=== PATIENT | female | born 1955 | race Caucasian/White ===

== ENCOUNTER 2020-03-01 17:10 | Emergency (ER) | payer MEDICARE, OTHER, BC ==
--- NOTE | 2020-03-01 17:54 | CT ---
PROCEDURE INFORMATION: Exam: CT Head Without Contrast Exam date and time: 03/01/2020 5:36 PM Age: 64 years old Clinical indication: Other: Fall; Additional info: Fall, injury to right head face TECHNIQUE: Imaging protocol: Computed tomography of the head without contrast. Radiation optimization: All CT scans at this facility use at least one of these dose optimization techniques: automated exposure control; mA and/or kV adjustment per patient size (includes targeted exams where dose is matched to clinical indication); or iterative reconstruction. COMPARISON: No relevant prior studies available. FINDINGS: Brain: Normal. No hemorrhage. Unremarkable white matter. No mass effect. Cerebral ventricles: No ventriculomegaly. Bones/joints: Unremarkable. No acute fracture. Paranasal sinuses: Visualized sinuses are unremarkable. No fluid levels. Mastoid air cells: Visualized mastoid air cells are well aerated. Soft tissues: Unremarkable. IMPRESSION: No acute intracranial abnormality.
--- NOTE | 2020-03-01 18:01 | EDM.PDOC ---
"Scribed by Maira Warner 03/01/20 [id number] for Rehan Pruitt MD ED HPI GENERAL MEDICAL PROBLEM - General Chief Complaint: Head Injury Stated Complaint: HEAD INJURY Time Seen by Provider: 03/01/20 17:19 Source of Information: Reports: Patient, RN, RN Notes Reviewed History Limitations: Reports: No Limitations - History of Present Illness INITIAL COMMENTS - FREE TEXT/NARRATIVE: Patient presents to ED by POV stating she was trying separate a metal bunk bed when it sprung loose and struck her on the right side of the head and knocked her to the floor. She does not think she has loss of consciousness, but she was dazed and briefly nauseated. Denies any other injury. She does not take aspirin or blood thinners. Onset: Today Duration: Constant Location: Reports: Head Quality: Reports: Ache Severity: Moderate Improves with: Reports: None Worsens with: Reports: None Associated Symptoms: Reports: No Other Symptoms Right Face/Facial Pain Score (Numeric/FACES): 3 - Related Data Allergies Allergy/AdvReac Type Severity Reaction Status Date / Time Sulfa (Sulfonamide Allergy Other Verified 03/01/20 17:26 Antibiotics) Home Meds: Home Meds Cholecalciferol (Vitamin D3) [Vitamin D] 5,000 unit PO DAILY 03/01/20 [History] Metoprolol Tartrate [Lopressor] 50 mg PO DAILY 03/01/20 [History] Spironolactone [Aldactone] 12.5 mg PO DAILY 03/01/20 [History] ED ROS GENERAL - Review of Systems Review Of Systems: Comprehensive ROS is negative, except as noted in HPI. ED EXAM, HEAD INJURY - Physical Exam Exam: See Below Exam Limited By: No Limitations General Appearance: Alert, WD/WN, No Apparent Distress Neck: Normal Inspection Respiratory: No Respiratory Distress Cardiovascular: Normal Peripheral Pulses, Regular Rate, Rhythm Course - Vital Signs Last Recorded V/S: Last Vital Signs Temp 98.6 F 03/01/20 17:23 Pulse 73 03/01/20 17:23 Resp 18 03/01/20 17:23 BP 165/85 H 03/01/20 17:37 Pulse Ox 96 03/01/20 17:23 - Radiology Interpretation Free Text/Narrative:: [facility] Final Radiology Report Call: [phone] assistance Online chat: [email or web address] Name: IWONA FERNANDO Age: 64Years F Date: 03/01/2020 SSN: -- : 1955 Study: CT HEAD WO CONT Requesting Physician: REHAN PRUITT Images: [id number] Addl Studies: Provided Clinical History: fall, injury to right head face Contrast: Without Contrast Medium: Contrast Amount: Contrast Method: CONFIDENTIALITY STATEMENT This report is intended only for use by the referring physician, and only in accordance with law. If you received this in error, call [phone]. Page 1 of 1 PROCEDURE INFORMATION: Exam: CT Head Without Contrast Exam date and time: 03/01/2020 5:36 PM Age: 64 years old Clinical indication: Other: Fall; Additional info: Fall, injury to right head face TECHNIQUE: Imaging protocol: Computed tomography of the head without contrast. Radiation optimization: All CT scans at this facility use at least one of these dose optimization techniques: automated exposure control; mA and/or kV adjustment per patient size (includes targeted exams where dose is matched to clinical indication); or iterative reconstruction. COMPARISON: No relevant prior studies available. FINDINGS: Brain: Normal. No hemorrhage. Unremarkable white matter. No mass effect. Cerebral ventricles: No ventriculomegaly. Bones/joints: Unremarkable. No acute fracture. Paranasal sinuses: Visualized sinuses are unremarkable. No fluid levels. Mastoid air cells: Visualized mastoid air cells are well aerated. Soft tissues: Unremarkable. IMPRESSION: No acute intracranial abnormality. Thank you for allowing us to participate in the care of your patient. Dictated and Authenticated by: Bryan Culp MD 03/01/2020 5:54 PM Central Time ([place] & [place]) [facility] Final Radiology Report Call: [phone] assistance Online chat: [email or web address] Name: IWONA FERNANDO Age: 64Years F Date: 03/01/2020 SSN: -- : 1955 Study: CT MAX FACIAL SINUS WO CONT Requesting Physician: REHAN PRUITT Images: [id number] Addl Studies: Provided Clinical History: fall, injury to right head face Contrast: Without Contrast Medium: Contrast Amount: Contrast Method: Page 1 of 2 PROCEDURE INFORMATION: Exam: CT Maxillofacial Without Contrast Exam date and time: 03/01/2020 5:36 PM Age: 64 years old Clinical indication: Other: , Right sided pain; Additional info: Fall, injury to right head face TECHNIQUE: Imaging protocol: Computed tomography images of the face without contrast. Radiation optimization: All CT scans at this facility use at least one of these dose optimization techniques: automated exposure control; mA and/or kV adjustment per patient size (includes targeted exams where dose is matched to clinical indication); or iterative reconstruction. COMPARISON: No relevant prior studies available. FINDINGS: Orbital cavity: Orbits are normal. Globes are unremarkable. Bones/joints: No acute fracture. Paranasal sinuses: Normal. No air-fluid levels. Soft tissues: Unremarkable. IMPRESSION: 1. No acute findings. 2. No facial fracture. 3. No sinus air-fluid levels. 4. Orbits and contents are unremarkable. 5. No soft tissue foreign body. No significant facial hematoma or contusion evident. Thank you for allowing us to participate in the care of your patient. IWONA FERNANDO | Final Radiology Report CONFIDENTIALITY STATEMENT This report is intended only for use by the referring physician, and only in accordance with law. If you received this in error, call [phone]. Page 2 of 2 Dictated and Authenticated by: Bryan Culp MD 03/01/2020 6:00 PM Central Time ([place] & [place]) Departure - Departure Time of Disposition: 17:57 Disposition: Home, Self-Care 01 Condition: Good Clinical Impression: Concussion Qualifiers: Encounter type: initial encounter Loss of consciousness presence/duration: without LOC Qualified Code(s): S06.0X0A - Concussion without loss of consciousness, initial encounter Facial contusion Qualifiers: Encounter type: initial encounter Qualified Code(s): S00.83XA - Contusion of other part of head, initial encounter - Discharge Information *PRESCRIPTION DRUG MONITORING PROGRAM REVIEWED*: Not Applicable *COPY OF PRESCRIPTION DRUG MONITORING REPORT IN PATIENT JULIANN: Not Applicable Instructions: Concussion, Adult, [id number], Facial or Scalp Contusion, [id number] Forms: ED Department Discharge Additional Instructions: Rest, ice pack, and use Tylenol or Ibuprofen as needed for pain. Sepsis Event Note (ED) - Focused Exam Vital Signs: Vital Signs Temp Pulse Resp BP Pulse Ox 03/01/20 17:37 165/85 H 03/01/20 17:23 98.6 F 73 18 178/86 H 96 I have read and agree with the documentation that has been completed regarding this visit. By signing this record, I attest that the documentation was completed in my physical presence and is an accurate record of the encounter."
== END 2020-03-01 18:08 | disposition home or self-care (01) ==
LOC: DL.ED 17:10
DX: S06.0X0A Concussion without loss of consciousness, initial encounter (principal); S00.83XA Contusion of other part of head, initial encounter; Z88.2 Allergy status to sulfonamides; W22.8XXA Striking against or struck by other objects, initial encounter
CPT/HCPCS: 70450; 70486; 99283; 99284-25

== ENCOUNTER 2020-04-20 13:55 | Emergency (ER) | payer MEDICARE, BC, OTHER ==
[2020-04-20 15:07] LABS: CORONAVIRUS COVID-19 NAA NEGATIVE (NEGATIVE)
--- NOTE | 2020-04-20 16:45 | EDM.PDOC ---
ED HPI GENERAL MEDICAL PROBLEM - General Chief Complaint: Fever Stated Complaint: FEVER,BODY ACHES,COUGH Time Seen by Provider: 04/20/20 16:25 Source of Information: Reports: Patient History Limitations: Reports: No Limitations - History of Present Illness INITIAL COMMENTS - FREE TEXT/NARRATIVE: This 64 yo female patient reports to the ED with increased shortness of breath, a cough and a fever. The patient reports she has had her spleen removed causing increased concern due to the fever. The patient reports she has been taking Tylenol or ibuprofen for temporary fever relief. Duration: Day(s):, Constant, Getting Worse Location: Reports: Chest, Generalized Quality: Reports: Other Severity: Moderate Improves with: Reports: None Worsens with: Reports: None Associated Symptoms: Reports: Cough, Fever/Chills, Shortness of Breath, Other (decreased energy) Treatments ONLINE BANKING SPECIALIST: Reports: Acetaminophen, NSAIDS - Related Data Allergies Allergy/AdvReac Type Severity Reaction Status Date / Time Sulfa (Sulfonamide Allergy Other Verified 04/20/20 16:15 Antibiotics) Home Meds: Home Meds Cholecalciferol (Vitamin D3) [Vitamin D] 50,000 unit PO WEEKLY 03/01/20 [History] Metoprolol Tartrate [Lopressor] 50 mg PO DAILY 03/01/20 [History] Spironolactone [Aldactone] 12.5 mg PO DAILY 03/01/20 [History] Past Medical History Cardiovascular History: Reports: Hypertension Other Hematologic History: thrombocytopenia - Past Surgical History GI Surgical History: Reports: Other (See Below) Other GI Surgeries/Procedures: Splenectomy Oncologic Surgical History: Reports: Biopsy of Breast Social & Family History - Tobacco Use Tobacco Use Status *Q: Never Tobacco User Second Hand Smoke Exposure: No - Caffeine Use Caffeine Use: Reports: None - Recreational Drug Use Recreational Drug Use: No ED ROS GENERAL - Review of Systems Review Of Systems: Comprehensive ROS is negative, except as noted in HPI. ED EXAM, GENERAL - Physical Exam Exam: See Below Exam Limited By: No Limitations General Appearance: Alert, WD/WN, Moderate Distress Eye Exam: Bilateral Eye: EOMI, Normal Inspection, PERRL Ears: Normal External Exam, Normal Canal, Hearing Grossly Normal, Normal TMs Nose: Normal Inspection, Normal Mucosa, No Blood Throat/Mouth: Normal Inspection, Normal Lips, Normal Teeth, Normal Gums, Normal Oropharynx, Normal Voice, No Airway Compromise Head: Atraumatic, Normocephalic Neck: Normal Inspection, Supple, Non-Tender, Full Range of Motion Respiratory/Chest: No Respiratory Distress, No Accessory Muscle Use, Chest Non- Tender, Rhonchi (faint rhonchi lower lobes) Cardiovascular: Normal Peripheral Pulses, Regular Rate, Rhythm, No Edema, No Gallop, No JVD, No Murmur, No Rub GI/Abdominal: Normal Bowel Sounds, Soft, Non-Tender, No Organomegaly, No Distention, No Abnormal Bruit, No Mass (Female) Exam: Deferred Rectal (Female) Exam: Deferred Back Exam: Normal Inspection, Full Range of Motion, NT Extremities: Normal Inspection, Normal Range of Motion, Non-Tender, Normal Capillary Refill, No Pedal Edema Neurological: Alert, Oriented, CN II-XII Intact, Normal Cognition, Normal Gait, Normal Reflexes, No Motor/Sensory Deficits Psychiatric: Normal Affect, Normal Mood Skin Exam: Warm, Dry, Intact, Normal Color, No Rash Lymphatic: No Adenopathy Course - Vital Signs Last Recorded V/S: Last Vital Signs Temp 37.3 C 04/20/20 16:09 Pulse 70 04/20/20 16:09 Resp 18 04/20/20 16:09 BP 140/78 04/20/20 16:09 Pulse Ox 96 04/20/20 16:09 - Orders/Labs/Meds Orders: Active Orders 24 hr Category Date Time Status CULTURE BLOOD [BC] Stat Lab 04/20/20 16:34 Ordered CULTURE URINE [RM] Urgent Lab 04/20/20 16:35 Received UA W/MICROSCOPIC [URIN] Urgent Lab 04/20/20 16:35 Results Labs: Laboratory Tests 04/20/20 04/20/20 04/20/20 Range/Units 14:05 16:27 16:27 WBC 12.1 H (5.0-10.0) 10^3/uL RBC 4.38 (4.2-5.4) 10^6/uL Hgb 13.6 (12.0-16.0) g/dL Hct 39.6 (37.0-47.0) % MCV 90.4 (80-100) fL MCH 31.1 (27.0-34.0) pg MCHC 34.3 (33.0-35.0) g/dL Plt Count 91 L (150-450) 10^3/uL Neut % (Auto) 71.6 (42.2-75.2) % Lymph % (Auto) 21.2 (20.5-50.1) % [place] % (Auto) 6.7 (2-8) % Eos % (Auto) 0.1 L (1.0-3.0) % Baso % (Auto) 0.4 (0.0-1.0) % Sodium 129 L (136-145) mmol/L Potassium 3.7 (3.5-5.1) mmol/L Chloride 94 L (98-107) mmol/L Carbon Dioxide 22 (21-32) mmol/L Anion Gap 16.7 H (7-13) mEq/L BUN 16 (7-18) mg/dL Creatinine 0.95 (0.55-1.02) mg/dL Est Cr Clr Drug Dosing 55.27 mL/min Estimated GFR (MDRD) 59 BUN/Creatinine Ratio 16.8 (No establ ref range) Glucose 123 H (74-99) mg/dL Lactic Acid (0.4-2.0) mmol/L Calcium 8.9 (8.5-10.1) mg/dL Total Bilirubin 0.7 (0.2-1.0) mg/dL AST 19 (15-37) U/L ALT 31 (14-59) U/L Alkaline Phosphatase 72 (46-116) U/L Total Protein 8.8 H (6.4-8.2) g/dL Albumin 3.2 L (3.4-5.0) g/dL Globulin 5.6 Albumin/Globulin Ratio 0.57 Urine Color (YELLOW) Urine Appearance (CLEAR) Urine pH (5.0-9.0) Ur Specific [place] (1.005-1.030) Urine Protein (NEGATIVE) Urine Glucose (UA) (NEGATIVE) Urine Ketones (NEGATIVE) Urine Occult Blood (NEGATIVE) Urine Nitrite (NEGATIVE) Urine Bilirubin (NEGATIVE) Urine Urobilinogen (0.2-1.0) mg/dL Ur Leukocyte Esterase (NEGATIVE) Influenza Type A RNA Negative (NEGATIVE) Influenza Type B RNA Negative (NEGATIVE) SARS-CoV-2 RNA (ROBERTO) Negative (NEGATIVE) 04/20/20 04/20/20 Range/Units 16:27 16:35 WBC (5.0-10.0) 10^3/uL RBC (4.2-5.4) 10^6/uL Hgb (12.0-16.0) g/dL Hct (37.0-47.0) % MCV (80-100) fL MCH (27.0-34.0) pg MCHC (33.0-35.0) g/dL Plt Count (150-450) 10^3/uL Neut % (Auto) (42.2-75.2) % Lymph % (Auto) (20.5-50.1) % [place] % (Auto) (2-8) % Eos % (Auto) (1.0-3.0) % Baso % (Auto) (0.0-1.0) % Sodium (136-145) mmol/L Potassium (3.5-5.1) mmol/L Chloride (98-107) mmol/L Carbon Dioxide (21-32) mmol/L Anion Gap (7-13) mEq/L BUN (7-18) mg/dL Creatinine (0.55-1.02) mg/dL Est Cr Clr Drug Dosing mL/min Estimated GFR (MDRD) BUN/Creatinine Ratio (No establ ref range) Glucose (74-99) mg/dL Lactic Acid 0.8 (0.4-2.0) mmol/L Calcium (8.5-10.1) mg/dL Total Bilirubin (0.2-1.0) mg/dL AST (15-37) U/L ALT (14-59) U/L Alkaline Phosphatase (46-116) U/L Total Protein (6.4-8.2) g/dL Albumin (3.4-5.0) g/dL Globulin Albumin/Globulin Ratio Urine Color Yellow (YELLOW) Urine Appearance Clear (CLEAR) Urine pH 5.5 (5.0-9.0) Ur Specific [place] >= 1.030 (1.005-1.030) Urine Protein 30 H (NEGATIVE) Urine Glucose (UA) Negative (NEGATIVE) Urine Ketones Trace H (NEGATIVE) Urine Occult Blood Small H (NEGATIVE) Urine Nitrite Negative (NEGATIVE) Urine Bilirubin Negative (NEGATIVE) Urine Urobilinogen 0.2 (0.2-1.0) mg/dL Ur Leukocyte Esterase Small H (NEGATIVE) Influenza Type A RNA (NEGATIVE) Influenza Type B RNA (NEGATIVE) SARS-CoV-2 RNA (ROBERTO) (NEGATIVE) Meds: Medications Discontinued Medications Generic Name Dose Route Start Last Admin Trade Name Berenice PRN Reason Stop Dose Admin Ceftriaxone Sodium 1 gm 04/20/20 17:03 Rocephin IM 04/20/20 17:04 ONETIME ONE Lidocaine HCl 2.1 ml 04/20/20 17:09 Xylocaine-Mpf 1% INJECT 04/20/20 17:10 ONETIME ONE Departure - Departure Time of Disposition: 17:07 Disposition: Home, Self-Care 01 Condition: Fair Clinical Impression: Acute bronchitis Qualifiers: Bronchitis organism: unspecified organism Qualified Code(s): J20.9 - Acute bronchitis, unspecified - Discharge Information *PRESCRIPTION DRUG MONITORING PROGRAM REVIEWED*: Not Applicable *COPY OF PRESCRIPTION DRUG MONITORING REPORT IN PATIENT JULIANN: Not Applicable Instructions: Acute Bronchitis, Adult, [id number] Forms: ED Department Discharge Care Plan Goals: The patient was advised of the examination, lab and x-ray results during the visit. The patient was given an injection of Rocephin while in the ED. The patient was discharged with a script for Azithromycin (250 mg) #6 to take 2 by mouth on day 1 and 1 by mouth on days 2-5. If the patient has any additional symptoms or concerns, the patient should either return to the emergency department or visit her primary care facility. Sepsis Event Note (ED) - Evaluation Sepsis Screening Result: No Definite Risk - Focused Exam Vital Signs: Vital Signs Temp Pulse Resp BP Pulse Ox 04/20/20 16:09 37.3 C 70 18 140/78 96 - My Orders Last 24 Hours: My Active Orders 04/20/20 16:34 CULTURE BLOOD [BC] Stat 04/20/20 16:35 CULTURE URINE [RM] Urgent UA W/MICROSCOPIC [URIN] Urgent - Assessment/Plan Last 24 Hours: My Active Orders 04/20/20 16:34 CULTURE BLOOD [BC] Stat 04/20/20 16:35 CULTURE URINE [RM] Urgent UA W/MICROSCOPIC [URIN] Urgent
--- NOTE | 2020-04-20 16:54 | CR ---
PROCEDURE INFORMATION: Exam: XR Chest, 2 Views Exam date and time: 04/20/2020 4:38 PM Age: 64 years old Clinical indication: Cough and shortness of breath; Additional info: Cough with shortness of breath TECHNIQUE: Imaging protocol: XR of the chest Views: 2 views. Total images: 2 COMPARISON: No relevant prior studies available. FINDINGS: Lungs: Somewhat rounded opacity in the right suprahilar region. Pleural spaces: Unremarkable. No pleural effusion. No pneumothorax. Heart/Mediastinum: Unremarkable. No cardiomegaly. Bones/joints: Anterior thoracic spine spurs. Intraperitoneal space: Surgical clips in the left upper quadrant of the abdomen. IMPRESSION: Somewhat rounded right suprahilar opacity. Possibly atelectatic or infectious however a nodule not excluded. Suggest correlation with chest CT for further evaluation.
[2020-04-20 16:58] LABS: ANION GAP 16.7 mEq/L (7-13)
[2020-04-20] MEDS ORDERED: cefTRIAXone 1 GM Vial IM ONE (17:03)
[2020-04-20] MEDS ORDERED: Lidocaine 1% 30 ML SDV INJECT ONE (17:09)
== END 2020-04-20 17:25 | disposition home or self-care (01) ==
LOC: DL.ED 13:55
DX: J20.9 Acute bronchitis, unspecified (principal); I10 Essential (primary) hypertension; Z79.899 Other long term (current) drug therapy; Z20.822 Contact with and (suspected) exposure to COVID-19; Z88.2 Allergy status to sulfonamides
CPT/HCPCS: 0240U; 36415; 71046; 80053; 81001; 83605; 85025; 87040; 87086; 87088; 87186; 96372; 99283; 99285-25; J0696

== ENCOUNTER 2020-10-18 08:15 | Emergency (ER) | payer MEDICARE, BC, OTHER ==
[2020-10-18] MEDS ORDERED: Tetracaine HCl/PF 0.5% 4 ML Bottle EYERT ONE (08:35)
[2020-10-18] MEDS ORDERED: Fluorescein 1 MG Ophth Strip EYERT ONE (08:37)
[2020-10-18] MEDS ORDERED: Polymyxin B/Trimethoprim 10 ML Bottle ONE (08:59)
--- NOTE | 2020-10-18 09:13 | EDM.PDOC ---
ED HPI GENERAL MEDICAL PROBLEM - General Chief Complaint: Eye Problems Stated Complaint: [id number] RIGHT EYE PAINFUL RED FEELS SCRATCHY Time Seen by Provider: 10/18/20 08:26 Source of Information: Reports: Patient History Limitations: Reports: No Limitations - History of Present Illness INITIAL COMMENTS - FREE TEXT/NARRATIVE: This 65 yo female patient reports to the ED with right eye became very itchy this morning. The patient does not recall getting anything in her eye, but was cleaning at her daughter's house yesterday. Onset: Today Duration: Constant Location: Reports: Head (Right eye) Quality: Reports: Ache, Burning Severity: Moderate Improves with: Reports: None Worsens with: Reports: None Context: Reports: Other Associated Symptoms: Reports: No Other Symptoms Right Eye Pain Score (Numeric/FACES): 6 - Related Data Allergies Allergy/AdvReac Type Severity Reaction Status Date / Time Sulfa (Sulfonamide Allergy Other Verified 04/20/20 16:15 Antibiotics) Home Meds: Home Meds Cholecalciferol (Vitamin D3) [Vitamin D] 50,000 unit PO WEEKLY 03/01/20 [History] Metoprolol Tartrate [Lopressor] 50 mg PO DAILY 03/01/20 [History] hydroCHLOROthiazide [Hydrochlorothiazide] 12.5 mg PO ASDIRECTED 10/18/20 [History] Past Medical History Cardiovascular History: Reports: Hypertension Other Hematologic History: thrombocytopenia - Infectious Disease History Infectious Disease History: Reports: Human Papilloma Virus (HPV) - Past Surgical History GI Surgical History: Reports: Other (See Below) Other GI Surgeries/Procedures: Splenectomy Oncologic Surgical History: Reports: Biopsy of Breast Social & Family History - Tobacco Use Tobacco Use Status *Q: Never Tobacco User - Caffeine Use Caffeine Use: Reports: Coffee - Recreational Drug Use Recreational Drug Use: No ED ROS GENERAL - Review of Systems Review Of Systems: Comprehensive ROS is negative, except as noted in HPI. ED EXAM GENERAL W FULL EYE - Physical Exam Exam: See Below Exam Limited By: No Limitations General Appearance: Alert, WD/WN, No Apparent Distress Eye Exam: Right Eye: Conjunctival Injection, Corneal Abrasion, Bilateral Eye: EOMI Eyelids: Bilateral: Normal Appearance Conjunctiva & Sclera: Right: Conjunctival Edema, Injected Cornea Exam: Right: Corneal Abrasion (At the 5 o'clock position) Extraocular Movements: Bilateral: Intact Pupils: Normal Accommodation Pupillary Size: Bilateral: 4 mm Pupillary Reaction: Bilateral: Brisk Ears: Normal External Exam, Normal Canal, Hearing Grossly Normal, Normal TMs Nose: Normal Inspection, Normal Mucosa, No Blood Throat/Mouth: Normal Inspection, Normal Lips, Normal Teeth, Normal Gums, Normal Oropharynx, Normal Voice, No Airway Compromise Head: Atraumatic, Normocephalic Neck: Normal Inspection, Supple, Non-Tender, Full Range of Motion Respiratory/Chest: No Respiratory Distress, Lungs Clear, Normal Breath Sounds, No Accessory Muscle Use, Chest Non-Tender Cardiovascular: Normal Peripheral Pulses, Regular Rate, Rhythm, No Edema, No Gallop, No JVD, No Murmur, No Rub (Male) Exam: Deferred (Female) Exam: Deferred Rectal (Males) Exam: Deferred Rectal (Female) Exam: Deferred Back Exam: Normal Inspection, Full Range of Motion, NT Extremities: Normal Inspection, Normal Range of Motion, Non-Tender, Normal Capillary Refill, No Pedal Edema Neurological: Alert, Oriented, CN II-XII Intact, Normal Cognition, Normal Gait, Normal Reflexes, No Motor/Sensory Deficits Psychiatric: Normal Affect, Normal Mood Skin Exam: Warm, Dry, Intact, Normal Color, No Rash Lymphatic: No Adenopathy ED EYE w/ Add Procedure - Eye Procedure Alcaine Drops Administered: Yes Eye FB Removal: no Removal w/ Cotton Swab, no Removal w/ Needle, no Other Antibiotic Oinment/Drps Admin: Right Eye Progress: Corneal abrasion noted to right pupil at the 5 o'clock position Course - Vital Signs Last Recorded V/S: Last Vital Signs Temp 97.9 F 10/18/20 08:26 Pulse 69 10/18/20 08:26 Resp 14 10/18/20 08:26 BP 156/69 H 10/18/20 09:10 Pulse Ox 96 10/18/20 08:26 - Orders/Labs/Meds Meds: Medications Discontinued Medications Generic Name Dose Route Start Last Admin Trade Name Berenice PRN Reason Stop Dose Admin Fluorescein Sodium 1 mg 10/18/20 08:37 10/18/20 08:44 Fluorescein 1 Mg Ophth Strip EYERT 10/18/20 08:38 1 mg ONETIME ONE Administration Polymyxin/Trimethoprim Sulfate Confirm 10/18/20 08:59 10/18/20 09:05 Polymyxin B/Trimethoprim 10 Ml Bottle Administered 10/18/20 09:00 Not Given Dose 10 ml .ROUTE .STK-MED ONE Tetracaine HCl 1 ml 10/18/20 08:35 10/18/20 08:44 Tetracaine Hcl/Pf 0.5% 4 Ml Bottle EYERT 10/18/20 08:36 1 drop ASDIRECTED ONE Administration Departure - Departure Time of Disposition: 09:01 Disposition: Home, Self-Care 01 Condition: Fair Clinical Impression: Corneal abrasion Qualifiers: Encounter type: initial encounter Laterality: right Qualified Code(s): S05.01XA - Injury of conjunctiva and corneal abrasion without foreign body, right eye, initial encounter - Discharge Information *PRESCRIPTION DRUG MONITORING PROGRAM REVIEWED*: Not Applicable *COPY OF PRESCRIPTION DRUG MONITORING REPORT IN PATIENT JULIANN: Not Applicable Instructions: Corneal Abrasion, [id number] Forms: ED Department Discharge Care Plan Goals: The patient was advises of the examination results during the visit. The patient's eye was anesthetized during the visit. A corneal abrasion was identified during examination. The patient was discharged with Polytrim to place 1 drop in her right eye 4 times per day for 7 days. The patient was encouraged to avoid rubbing her eye. If the patient has any additional symptoms or concerns, the patient should either return to the emergency department, visit her eye doctor or return to the ED. Sepsis Event Note (ED) - Evaluation Sepsis Screening Result: No Definite Risk - Focused Exam Vital Signs: Vital Signs Temp Pulse Resp BP Pulse Ox 10/18/20 09:10 156/69 H 10/18/20 08:34 156/94 H 10/18/20 08:26 97.9 F 69 14 203/64 H 96
== END 2020-10-18 09:19 | disposition home or self-care (01) ==
LOC: DL.ED 08:15
DX: S05.01XA Injury of conjunctiva and corneal abrasion without foreign body, right eye, initial encounter (principal); I10 Essential (primary) hypertension; Z88.2 Allergy status to sulfonamides; Z79.899 Other long term (current) drug therapy; X58.XXXA Exposure to other specified factors, initial encounter
CPT/HCPCS: 99283; A9270

== ENCOUNTER 2020-11-28 09:00 | Emergency (ER) | payer BC, MEDICARE, OTHER | END 2020-11-28 10:30 | disposition home or self-care (01) | LOC: DL.ED 09:00 | DX: Z53.21 Procedure and treatment not carried out due to patient leaving prior to being seen by health care provider (principal) ==

== ENCOUNTER 2021-01-25 09:30 | Emergency (ER) | payer BC, MEDICARE, OTHER ==
--- NOTE | 2021-01-25 09:56 | EDM.PDOC ---
ED HPI GENERAL MEDICAL PROBLEM - General Chief Complaint: Abdominal Pain Stated Complaint: STOMACH ISSUES Time Seen by Provider: 01/25/21 09:54 Source of Information: Reports: Patient, RN, RN Notes Reviewed History Limitations: Reports: No Limitations - History of Present Illness INITIAL COMMENTS - FREE TEXT/NARRATIVE: Indigo is a 65 y/o female who presents to the ED via personal vehicle from the [facility] at the request of her PCP with complaints of RLQ pain, fever, and diarrhea. The patient reports her symptoms began two days ago and have progressively worsened in that time. Additionally, she notes shaking chills and nausea. Her TMax was last night at 100.4, which appropriately reduced with acetaminophen. She denies vision changes, dizziness, palpitations, vomiting, dysuria, hematuria, hematochezia, or melena. The patient denies tobacco, alcohol, or recreational drug use. The patient states she was diagnosed with a cryptosporidium infection approximately 15 months ago, which feels similar in symptoms. - Related Data Allergies Allergy/AdvReac Type Severity Reaction Status Date / Time Sulfa (Sulfonamide Allergy Other Verified 04/20/20 16:15 Antibiotics) Home Meds: Home Meds Cholecalciferol (Vitamin D3) [Vitamin D] 50,000 unit PO WEEKLY 03/01/20 [History] Metoprolol Tartrate [Lopressor] 50 mg PO DAILY 03/01/20 [History] hydroCHLOROthiazide [Hydrochlorothiazide] 12.5 mg PO ASDIRECTED 10/18/20 [History] Past Medical History Cardiovascular History: Reports: Hypertension Other Hematologic History: thrombocytopenia - Infectious Disease History Infectious Disease History: Reports: Human Papilloma Virus (HPV) - Past Surgical History GI Surgical History: Reports: Other (See Below) Other GI Surgeries/Procedures: Splenectomy Oncologic Surgical History: Reports: Biopsy of Breast Social & Family History - Caffeine Use Caffeine Use: Reports: Coffee ED ROS GENERAL - Review of Systems Review Of Systems: Comprehensive ROS is negative, except as noted in HPI. ED EXAM, RENAL/ - Physical Exam Exam: See Below Exam Limited By: No Limitations General Appearance: Alert, Mild Distress (RLQ pain). No: Active Emesis Eye Exam: Bilateral Eye: EOMI, Normal Inspection, PERRL (3mm) Ears: Normal External Exam, Hearing Grossly Normal Nose: Normal Inspection Throat/Mouth: Normal Inspection, Normal Oropharynx, Normal Voice, No Airway Compromise Head: Atraumatic Neck: Normal Inspection Respiratory/Chest: No Respiratory Distress, Lungs Clear, Normal Breath Sounds, No Accessory Muscle Use, Chest Non-Tender Cardiovascular: Normal Peripheral Pulses, Regular Rate, Rhythm, No Gallop, No Murmur, No Rub GI/Abdominal: No Distention, No Abnormal Bruit, No Mass, Pelvis Stable, Rebound (RLQ), Tender (RLQ and RUQ to palpation), Abnormal Bowel Sounds (Hypoactive ). No: Guarding, Rigid (Female) Exam: Deferred Rectal (Female) Exam: Deferred Back Exam: Normal Inspection, Full Range of Motion. No: CVA Tenderness (L), CVA Tenderness (R) Extremities: Normal Inspection, Normal Range of Motion, Normal Capillary Refill Neurological: Alert, Oriented, CN II-XII Intact, Normal Cognition, Normal Gait, No Motor/Sensory Deficits Psychiatric: Normal Affect, Normal Mood Skin Exam: Warm, Dry, Intact, Normal Color, No Rash. No: Cyanosis, Jaundice, Mottled, Pallor Lymphatic: No Adenopathy Course - Vital Signs Last Recorded V/S: Last Vital Signs Temp 98.7 F 01/25/21 09:50 Pulse 71 01/25/21 13:22 Resp 16 01/25/21 09:50 BP 185/85 H 01/25/21 13:22 Pulse Ox 99 01/25/21 09:50 - Orders/Labs/Meds Orders: Active Orders 24 hr Category Date Time Status CRYPTOSPORIDIUM BY IMMUNOASSAY [MREF] Stat Lab 01/25/21 10:00 Ordered Labs: Laboratory Tests 01/25/21 01/25/21 01/25/21 Range/Units 10:05 10:05 10:05 WBC 14.3 H (5.0-10.0) 10^3/uL RBC 4.51 (4.2-5.4) 10^6/uL Hgb 13.6 (12.0-16.0) g/dL Hct 41.2 (37.0-47.0) % MCV 91.4 (80-100) fL MCH 30.2 (27.0-34.0) pg MCHC 33.0 (33.0-35.0) g/dL Plt Count 121 L (150-450) 10^3/uL Neut % (Auto) 66.6 (42.2-75.2) % Lymph % (Auto) 25.3 (20.5-50.1) % Bacon % (Auto) 7.2 (2-8) % Eos % (Auto) 0.6 L (1.0-3.0) % Baso % (Auto) 0.3 (0.0-1.0) % Sodium 136 (136-145) mmol/L Potassium 3.9 (3.5-5.1) mmol/L Chloride 100 (98-107) mmol/L Carbon Dioxide 25 (21-32) mmol/L Anion Gap 14.9 H (7-13) mEq/L BUN 13 (7-18) mg/dL Creatinine 0.91 (0.55-1.02) mg/dL Est Cr Clr Drug Dosing TNP Estimated GFR (MDRD) > 60 BUN/Creatinine Ratio 14.3 (No establ ref range) Glucose 119 H (70-99) mg/dL Lactic Acid 0.9 (0.4-2.0) mmol/L Calcium 8.7 (8.5-10.1) mg/dL Total Bilirubin 1.0 (0.2-1.0) mg/dL AST 22 (15-37) U/L ALT 34 (14-59) U/L Alkaline Phosphatase 86 (46-116) U/L C-Reactive Protein 5.6 H (0.0-0.9) mg/dL Total Protein 8.5 H (6.4-8.2) g/dL Albumin 3.3 L (3.4-5.0) g/dL Globulin 5.2 Albumin/Globulin Ratio 0.63 Amylase 46 (25-115) U/L Lipase 80 (73-393) U/L Urine Color (YELLOW) Urine Appearance (CLEAR) Urine pH (5.0-9.0) Ur Specific [place] (1.005-1.030) Urine Protein (NEGATIVE) Urine Glucose (UA) (NEGATIVE) Urine Ketones (NEGATIVE) Urine Occult Blood (NEGATIVE) Urine Nitrite (NEGATIVE) Urine Bilirubin (NEGATIVE) Urine Urobilinogen (0.2-1.0) mg/dL Ur Leukocyte Esterase (NEGATIVE) Urine RBC (0-5) /HPF Urine WBC (0-5/HPF) /HPF Ur Epithelial Cells (NOT SEEN) /HPF Urine Bacteria (0-FEW/HPF) /HPF Urine Mucus (NOT SEEN) /LPF 01/25/21 Range/Units 11:20 WBC (5.0-10.0) 10^3/uL RBC (4.2-5.4) 10^6/uL Hgb (12.0-16.0) g/dL Hct (37.0-47.0) % MCV (80-100) fL MCH (27.0-34.0) pg MCHC (33.0-35.0) g/dL Plt Count (150-450) 10^3/uL Neut % (Auto) (42.2-75.2) % Lymph % (Auto) (20.5-50.1) % Bacon % (Auto) (2-8) % Eos % (Auto) (1.0-3.0) % Baso % (Auto) (0.0-1.0) % Sodium (136-145) mmol/L Potassium (3.5-5.1) mmol/L Chloride (98-107) mmol/L Carbon Dioxide (21-32) mmol/L Anion Gap (7-13) mEq/L BUN (7-18) mg/dL Creatinine (0.55-1.02) mg/dL Est Cr Clr Drug Dosing Estimated GFR (MDRD) BUN/Creatinine Ratio (No establ ref range) Glucose (70-99) mg/dL Lactic Acid (0.4-2.0) mmol/L Calcium (8.5-10.1) mg/dL Total Bilirubin (0.2-1.0) mg/dL AST (15-37) U/L ALT (14-59) U/L Alkaline Phosphatase (46-116) U/L C-Reactive Protein (0.0-0.9) mg/dL Total Protein (6.4-8.2) g/dL Albumin (3.4-5.0) g/dL Globulin Albumin/Globulin Ratio Amylase (25-115) U/L Lipase (73-393) U/L Urine Color Yellow (YELLOW) Urine Appearance Clear (CLEAR) Urine pH 7.0 (5.0-9.0) Ur Specific [place] 1.010 (1.005-1.030) Urine Protein Negative (NEGATIVE) Urine Glucose (UA) Negative (NEGATIVE) Urine Ketones Negative (NEGATIVE) Urine Occult Blood Trace-intact H (NEGATIVE) Urine Nitrite Negative (NEGATIVE) Urine Bilirubin Negative (NEGATIVE) Urine Urobilinogen 0.2 (0.2-1.0) mg/dL Ur Leukocyte Esterase Negative (NEGATIVE) Urine RBC 0-5 (0-5) /HPF Urine WBC 0-5 (0-5/HPF) /HPF Ur Epithelial Cells Rare (NOT SEEN) /HPF Urine Bacteria Not seen (0-FEW/HPF) /HPF Urine Mucus Not seen (NOT SEEN) /LPF Meds: Medications Discontinued Medications Generic Name Dose Route Start Last Admin Trade Name Philq PRN Reason Stop Dose Admin Fentanyl 25 mcg 01/25/21 12:33 01/25/21 13:21 Fentanyl 100 Mcg/2 Ml Sdv IVPUSH 01/25/21 12:34 25 mcg ONETIME ONE Administration Protocol Hydrochlorothiazide 12.5 mg 01/25/21 12:33 01/25/21 13:22 Hydrochlorothiazide 25 Mg Tab PO 01/25/21 12:34 12.5 mg ONETIME ONE Administration Ciprofloxacin/Dextrose 400 mg/ 200 mls @ 200 mls/hr 01/25/21 12:33 01/25/21 14:26 Premix IV 01/25/21 13:32 200 mls/hr ONETIME ONE Administration Metronidazole 500 mg/ Premix 100 mls @ 100 mls/hr 01/25/21 12:35 01/25/21 13:20 IV 01/25/21 13:34 100 mls/hr ONETIME ONE Administration Iopamidol 100 ml 01/25/21 11:10 01/25/21 11:11 Iopamidol 612 Mg/Ml 100 Ml Bottle IVPUSH 01/25/21 11:11 100 ml ONETIME ONE Administration Metoprolol Tartrate 50 mg 01/25/21 12:33 01/25/21 13:22 Metoprolol Tartrate 50 Mg Tab PO 01/25/21 12:34 50 mg ONETIME ONE Administration Ondansetron HCl 4 mg 01/25/21 09:57 01/25/21 10:32 Ondansetron 4 Mg/2 Ml Sdv IVPUSH 01/25/21 09:58 4 mg ONETIME ONE Administration - Radiology Interpretation Free Text/Narrative:: [facility] Final Radiology Report Call: [phone] assistance Online chat: [email or web address] Name: INDIGO FERNANDO Age: 65Years F Date: 01/25/2021 SSN: -- : [id number] Study: CT ABDOMEN PELVIS W CONT Requesting Physician: Suze Reyes Images: [id number] Addl Studies: Provided Clinical History: r/o appendicitis; WBC 14; RLQ pain with fever Contrast: With Contrast Medium: Isovue 300 Contrast Amount: 100 mL Contrast Method: Intravenous (IV) Page 1 of 2 PROCEDURE INFORMATION: Exam: CT Abdomen And Pelvis With Contrast Exam date and time: 01/25/2021 11:07 AM Age: 65 years old Clinical indication: Abdominal pain; Localized; Right lower quadrant (rlq); Additional info: R/O appendicitis; Wbc 14; Rlq pain with fever TECHNIQUE: Imaging protocol: Computed tomography of the abdomen and pelvis with contrast. Radiation optimization: All CT scans at this facility use at least one of these dose optimization techniques: automated exposure control; mA and/or kV adjustment per patient size (includes targeted exams where dose is matched to clinical indication); or iterative reconstruction. Contrast material: ISOVUE 300; Contrast volume: 100 ml; Contrast route: INTRAVENOUS (IV); COMPARISON: No relevant prior studies available. FINDINGS: Heart: Atherosclerotic calcifications are present involving the RCA coronary artery. Liver: Mild geographic hypoattenuation of the liver is present consistent with hepatic steatosis. Gallbladder and bile ducts: A few dependent small gallstones are noted posterio rly in the nondistended gallbladder. No gallbladder wall thickening or pericholecystic fluid identified. Pancreas: Normal. No ductal dilation. Spleen: Prior splenectomy. Adrenal glands: 9.8 mm left adrenal nodule. Kidneys and ureters: Mild focal right renal cortical scarring. Stomach and bowel: Severe wall thickening of the distal sigmoid colon, relative mural hypoenhancement mild mucosal hyperenhancement, mild pericolonic induration. Sigmoid colonic diverticula are present without evidence of diverticulitis. The ascending colon is mobile on mesentery, and projects in the right upper quadrant of the abdomen. Appendix: The vermiform appendix is not identified on this examination. There is, however, no pericecal abnormality to suggest appendicitis. Intraperitoneal space: No free air. No significant fluid collection. Vasculature: Moderate aortic atherosclerotic calcification without aneurysm. The iliac arteries show mild bilateral atherosclerotic calcifications without evidence of aneurysm. There is a dilated early opacifying left gonadal vein. Left parauterine vascular collaterals. Lymph nodes: No enlarged lymph nodes. Urinary bladder: Unremarkable as visualized. Reproductive: Unremarkable as visualized. Bones/joints: Anterior bridging right sacroiliac joint marginal osteophytes. Bilateral lower lumbar facet primary osteoarthritis. Lumbar spine vertebral body marginal osteophytes are noted at multiple levels. Grade 1 L4-5 degenerative type anterolisthesis. Probable 7 mm bone island right superior pubic ramus. Additional small probable bone island right femoral neck. Soft tissues: A tiny paraumbilical hernia containing only abdominal fat is noted. IMPRESSION: 1. Severe wall thickening of the distal sigmoid colon, relative mural hypoenhancement mild mucosal hyperenhancement, mild pericolonic induration. The finding is consistent with nonspecific colitis, etiology indeterminate, but including ischemic colitis. Clinical correlation to determine the specific etiology is recommended. 2. Diverticulosis. 3. Prior splenectomy. 4. Left adrenal nodule. Recommend further evaluation with precontrast CT, or MRI. 5. Cholelithiasis. 6. Fatty infiltration of the liver. 7. Mild focal right renal cortical scarring. 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 9. Coronary atherosclerosis. COMMENTS: Consistent with the [employer]'s Incidental Findings Committee white paper (J Am Jose J Radiol 2017): Any incidental adrenal lesion less than or equal to 1 cm is likely benign. No follow-up imaging is recommended for these lesions per consensus recommendations based on imaging criteria. Further lab evaluation could be pursued if warranted based on clinical findings. Thank you for allowing us to participate in the care of your patient. Dictated and Authenticated by: Liam Lopez MD 01/25/2021 11:36 AM Central Time ([place] & [place]) - Re-Assessments/Exams Free Text/Narrative Re-Assessment/Exam: 01/25/21 CT abdomen/pelvis obtained. Case discussed with Dr. Gayle, general surgeon at [facility], regarding findings of CT. Dr. Gayle confirmed colitis, but states is is likely infectious given portion of the sigmoid colon involved is highly vascularized by three vessels, therefore ischemic colitis would be extremely rare. Findings of CT, lab work, and examination reviewed with patient. Will administer ciprofloxacin 400mg IVPB and metronidazole 500mg IVPB here and send home PO prescriptions. Crypto stool order placed; patient will bring back stool. Red flag signs and symptoms which would warrant immediate reevaluation reviewed. Patient verbalized understanding and agreement with the plan of care. Departure - Departure Time of Disposition: 15:45 Disposition: Home, Self-Care 01 Condition: Fair Clinical Impression: Colitis, Diverticulosis, Adrenal nodule, Fatty liver Cholelithiasis Qualifiers: Cholelithiasis location: gallbladder Cholecystitis presence: without cholecystitis Biliary obstruction: without biliary obstruction Qualified Code(s): K80.20 - Calculus of gallbladder without cholecystitis without obstruction - Discharge Information *PRESCRIPTION DRUG MONITORING PROGRAM REVIEWED*: Not Applicable *COPY OF PRESCRIPTION DRUG MONITORING REPORT IN PATIENT JULIANN: Not Applicable Instructions: Cholelithiasis, Colitis Referrals: PCP,None [Primary Care Provider] - Forms: ED Department Discharge Additional Instructions: Rx: ciprofloxacin Rx: metronidazole 1.) Start your antibiotics today and continue until gone, even as symptoms improve. 2.) Bowel rest for 24 hours, then clear liquids until symptoms improve. 3.) Refrain from work or activity until you are fever free for 24 hours. 4.) Return to the emergency department with any worsening symptoms despite antibiotics. 5.) Follow up with your primary care provider regarding the findings on your CT, including adrenal nodule. Sepsis Event Note (ED) - Focused Exam Vital Signs: Vital Signs Temp Pulse Pulse Resp BP BP Pulse Ox 01/25/21 13:22 71 185/85 H 01/25/21 09:50 98.7 F 68 16 115/71 99 - My Orders Last 24 Hours: My Active Orders 01/25/21 10:00 CRYPTOSPORIDIUM BY IMMUNOASSAY [MREF] Stat - Assessment/Plan Last 24 Hours: My Active Orders 01/25/21 10:00 CRYPTOSPORIDIUM BY IMMUNOASSAY [MREF] Stat
[2021-01-25] MEDS ORDERED: Ondansetron 4 MG/2 ML SDV IVPUSH ONE (09:57)
[2021-01-25 10:38] LABS: ANION GAP 14.9 mEq/L (7-13); CHLORIDE,CL 100 mmol/L (98-107); SODIUM,NA 136 mmol/L (136-145)
[2021-01-25] MEDS ORDERED: Iopamidol 612 MG/ML 100 ML Bottle IVPUSH ONE (11:10)
--- NOTE | 2021-01-25 11:36 | CT ---
PROCEDURE INFORMATION: Exam: CT Abdomen And Pelvis With Contrast Exam date and time: 01/25/2021 11:07 AM Age: 65 years old Clinical indication: Abdominal pain; Localized; Right lower quadrant (rlq); Additional info: R/O appendicitis; Wbc 14; Rlq pain with fever TECHNIQUE: Imaging protocol: Computed tomography of the abdomen and pelvis with contrast. Radiation optimization: All CT scans at this facility use at least one of these dose optimization techniques: automated exposure control; mA and/or kV adjustment per patient size (includes targeted exams where dose is matched to clinical indication); or iterative reconstruction. Contrast material: ISOVUE 300; Contrast volume: 100 ml; Contrast route: INTRAVENOUS (IV); COMPARISON: No relevant prior studies available. FINDINGS: Heart: Atherosclerotic calcifications are present involving the RCA coronary artery. Liver: Mild geographic hypoattenuation of the liver is present consistent with hepatic steatosis. Gallbladder and bile ducts: A few dependent small gallstones are noted posteriorly in the nondistended gallbladder. No gallbladder wall thickening or pericholecystic fluid identified. Pancreas: Normal. No ductal dilation. Spleen: Prior splenectomy. Adrenal glands: 9.8 mm left adrenal nodule. Kidneys and ureters: Mild focal right renal cortical scarring. Stomach and bowel: Severe wall thickening of the distal sigmoid colon, relative mural hypoenhancement mild mucosal hyperenhancement, mild pericolonic induration. Sigmoid colonic diverticula are present without evidence of diverticulitis. The ascending colon is mobile on mesentery, and projects in the right upper quadrant of the abdomen. Appendix: The vermiform appendix is not identified on this examination. There is, however, no pericecal abnormality to suggest appendicitis. Intraperitoneal space: No free air. No significant fluid collection. Vasculature: Moderate aortic atherosclerotic calcification without aneurysm. The iliac arteries show mild bilateral atherosclerotic calcifications without evidence of aneurysm. There is a dilated early opacifying left gonadal vein. Left parauterine vascular collaterals. Lymph nodes: No enlarged lymph nodes. Urinary bladder: Unremarkable as visualized. Reproductive: Unremarkable as visualized. Bones/joints: Anterior bridging right sacroiliac joint marginal osteophytes. Bilateral lower lumbar facet primary osteoarthritis. Lumbar spine vertebral body marginal osteophytes are noted at multiple levels. Grade 1 L4-5 degenerative type anterolisthesis. Probable 7 mm bone island right superior pubic ramus. Additional small probable bone island right femoral neck. Soft tissues: A tiny paraumbilical hernia containing only abdominal fat is noted. IMPRESSION: 1. Severe wall thickening of the distal sigmoid colon, relative mural hypoenhancement mild mucosal hyperenhancement, mild pericolonic induration. The finding is consistent with nonspecific colitis, etiology indeterminate, but including ischemic colitis. Clinical correlation to determine the specific etiology is recommended. 2. Diverticulosis. 3. Prior splenectomy. 4. Left adrenal nodule. Recommend further evaluation with precontrast CT, or MRI. 5. Cholelithiasis. 6. Fatty infiltration of the liver. 7. Mild focal right renal cortical scarring. 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 9. Coronary atherosclerosis. COMMENTS: Consistent with the [employer]'s Incidental Findings Committee white paper (J Am Jose J Radiol 2017): Any incidental adrenal lesion less than or equal to 1 cm is likely benign. No follow-up imaging is recommended for these lesions per consensus recommendations based on imaging criteria. Further lab evaluation could be pursued if warranted based on clinical findings.
[2021-01-25] MEDS ORDERED: Metoprolol Tartrate 50 MG Tab PO ONE (12:33)
[2021-01-25] MEDS ORDERED: Hydrochlorothiazide 25 MG Tab PO ONE (12:33)
[2021-01-25] MEDS ORDERED: Ciprofloxacin in D5W 400 MG in Premix Bag 1 BAG IV ONE ×2 (12:33)
[2021-01-25] MEDS ORDERED: fentaNYL 100 MCG/2 ML SDV IVPUSH ONE (12:33)
[2021-01-25] MEDS ORDERED: metroNIDAZOLE/Normal Saline 500 MG in Premix Bag 100 BAG IV ONE (12:35)
== END 2021-01-25 16:00 | disposition home or self-care (01) ==
LOC: DL.ED 09:30
DX: K80.20 Calculus of gallbladder without cholecystitis without obstruction (principal); K52.9 Noninfective gastroenteritis and colitis, unspecified; K57.30 Diverticulosis of large intestine without perforation or abscess without bleeding; E27.8 Other specified disorders of adrenal gland; K76.0 Fatty (change of) liver, not elsewhere classified; I10 Essential (primary) hypertension; Z88.2 Allergy status to sulfonamides; Z79.899 Other long term (current) drug therapy
CPT/HCPCS: 36415; 74177; 80053; 81001; 82150; 83605; 83690; 85025; 86140; 87328; 87329; 96365; 96367; 96375; 99284; A9270; J0744; J2405; J3010; J3490; Q9967

== ENCOUNTER 2021-07-12 06:30 | Day surgery (SDC) | payer BC, MEDICARE, OTHER ==
[~2021-07-12 06:30] MED LIST: Dextrose 5%-0.45% NaCl 1,000 ML IV SCH; Midazolam 1 MG/ML 2 ML SDV ONE; Sodium Chloride 0.9% 10 ML Syringe FLUSH PRN; Sodium Chloride 0.9% 10 ML Syringe FLUSH SCH; fentaNYL 100 MCG/2 ML SDV ONE
[2021-07-12] MEDS ORDERED: fentaNYL 100 MCG/2 ML SDV IV ONE ×3 (06:31→08:15)
[2021-07-12] MEDS ORDERED: Midazolam 1 MG/ML 2 ML SDV IV ONE ×7 (06:31→08:24)
== END 2021-07-12 11:15 | disposition home or self-care (01) ==
LOC: DL.ENDO 06:30
PROVIDERS: ATTEND Internal Medicine Gastroenterology
DX: K57.30 Diverticulosis of large intestine without perforation or abscess without bleeding (principal); K64.8 Other hemorrhoids; E66.09 Other obesity due to excess calories; D69.6 Thrombocytopenia, unspecified; E55.9 Vitamin D deficiency, unspecified; E78.1 Pure hyperglyceridemia; I10 Essential (primary) hypertension; L57.0 Actinic keratosis; N32.81 Overactive bladder; R73.9 Hyperglycemia, unspecified; Z88.2 Allergy status to sulfonamides; Z88.5 Allergy status to narcotic agent
CPT/HCPCS: 36415; 85049; J2250; J3010; J7042

== ENCOUNTER 2024-01-17 22:43 | Emergency (ER) | payer BC, MEDICARE ==
[2024-01-17] MEDS: Iopamidol 612 MG/ML 100 ML Bottle IVPUSH ONE (23:00)
[2024-01-17] MEDS: Ketorolac 30 MG/ML SDV IVPUSH ONE (23:15)
[2024-01-17] MEDS: Sodium Chloride 0.9% 1,000 ML IV ONE (23:20)
[2024-01-17 23:23] LABS: BASOPHILS PERCENT AUTO 0.3 % (0.0-1.0); EOSINOPHILS PERCENT AUTO 1.9 % (1.0-3.0); HEMATOCRIT 44.1 % (37.0-47.0); HEMOGLOBIN 14.8 g/dL (12.0-16.0); LYMPHOCYTES PERCENT AUTO 16.9 % (20.5-50.1); MEAN CORPUSCULAR HEMOGLOBIN 31.2 pg (27.0-34.0); MEAN CORPUSCULAR HGB CONC 33.6 g/dL (33.0-35.0); MEAN CORPUSCULAR VOLUME 92.8 fL (80-100); MONOCYTES PERCENT AUTO 7.9 % (2-8); PLATELET COUNT,PLT 138 10^3/uL (150-450); RED BLOOD CELL COUNT 4.75 10^6/uL (4.2-5.4)
[2024-01-17 23:39] LABS: ALBUMIN 3.3 g/dL (3.4-5.0); ANION GAP 12.9 mEq/L (7-13); BUN/CREATININE RATIO 18.4 (No establ ref range); CALCIUM 9.2 mg/dL (8.5-10.1); CREATININE 1.03 mg/dL (0.55-1.02); EST CRCL DRUG DOSING (CG) 48.26 mL/min; POTASSIUM,K 3.9 mmol/L (3.5-5.1)
[2024-01-17 23:42] LABS: LACTIC ACID 1.2 mmol/L (0.4-2.0)
[2024-01-17 23:51] LABS: A/G RATIO 0.7
[2024-01-18 00:50] LABS: APPEARANCE,URINE CLOUDY (CLEAR); BILIRUBIN,URINE NEGATIVE (NEGATIVE); COLOR,URINE YELLOW (YELLOW); GLUCOSE,URINE 500 (NEGATIVE); KETONES,URINE 15 (NEGATIVE); LEUKOCYTE ESTERASE,URINE SMALL (NEGATIVE); NITRITE,URINE NEGATIVE (NEGATIVE); OCCULT BLOOD,URINE TRACE-INTACT (NEGATIVE); PROTEIN,URINE NEGATIVE (NEGATIVE); UROBILINOGEN,URINE 0.2 mg/dL (0.2-1.0)
[2024-01-18 00:58] LABS: BACTERIA,URINE FEW /HPF (0-FEW/HPF); EPITHELIAL CELLS,URINE FEW /HPF (NOT SEEN); MUCUS,URINE FEW /LPF (NOT SEEN); WBC,URINE >100 /HPF (0-5/HPF)
[2024-01-18] MEDS: Ciprofloxacin in D5W 400 MG in Premix Bag 1 BAG IV ONE (01:14)
[2024-01-18] MEDS: Sodium Chloride 0.9% 1,000 ML IV ONE (01:15)
[2024-01-18] MEDS: metroNIDAZOLE/Normal Saline 500 MG in Premix Bag 1 BAG IV ONE (01:15)
== END 2024-01-18 02:30 | disposition home or self-care (01) ==
LOC: DL.ED 22:43
DX: K57.32 Diverticulitis of large intestine without perforation or abscess without bleeding (principal); N39.0 Urinary tract infection, site not specified; N28.9 Disorder of kidney and ureter, unspecified; I10 Essential (primary) hypertension; Z79.899 Other long term (current) drug therapy; Z88.5 Allergy status to narcotic agent; Z88.2 Allergy status to sulfonamides; Z88.7 Allergy status to serum and vaccine
CPT/HCPCS: 36415; 74177; 80053; 81001; 83605; 83690; 83735; 85025; 87086; 96361; 96365; 96368; 96375; 99284; J0744; J1836; J1885; J7030; Q9967; 87088; 87186

== ENCOUNTER 2024-05-15 12:27 | Emergency (ER) | payer BC, MEDICARE ==
[2024-05-15] MEDS ORDERED: Sodium Chloride 0.9% 10 ML Syringe FLUSH PRN (12:33)
[2024-05-15 12:59] LABS: HEMATOCRIT 35.5 % (37.0-47.0); HEMOGLOBIN 11.7 g/dL (12.0-16.0); MEAN CORPUSCULAR HEMOGLOBIN 30.8 pg (27.0-34.0); MEAN CORPUSCULAR VOLUME 93.4 fL (80-100); WHITE BLOOD CELL COUNT,WBC 10.7 10^3/uL (5.0-10.0)
[2024-05-15 13:12] LABS: INR 0.9 (0.9-1.2); PROTHROMBIN TIME 9.6 SEC (9.0-12.0)
[2024-05-15 13:16] LABS: ALANINE AMINOTRANSFERASE,ALT 27 U/L (14-59); ALBUMIN 3.3 g/dL (3.4-5.0); ALKALINE PHOSPHATASE 72 U/L (46-116); ANION GAP 12.7 mEq/L (7-13); ASPARTATE AMNIOTRANSFERASE,AST 19 U/L (15-37); BILIRUBIN TOTAL 0.5 mg/dL (0.2-1.0); BLOOD UREA NITROGEN,BUN 16 mg/dL (7-18); BUN/CREATININE RATIO 15.7 (No establ ref range); CALCIUM 9.2 mg/dL (8.5-10.1); CARBON DIOXIDE,CO2 31 mmol/L (21-32); CHLORIDE,CL 101 mmol/L (98-107); CREATININE 1.02 mg/dL (0.55-1.02); GLUCOSE RANDOM 171 mg/dL (70-99); POTASSIUM,K 3.7 mmol/L (3.5-5.1); PROTEIN TOTAL,TP 7.4 g/dL (6.4-8.2); SODIUM,NA 141 mmol/L (136-145)
[2024-05-15 13:21] LABS: ESTIMATED GFR 60 mL/min (>=60)
[2024-05-15] MEDS: methylPREDNISolone Sod Succ 1,000 MG in Sodium Chloride 0.9% 100 ML IV ONE (13:41)
[2024-05-15 13:53] LABS: PLATELET COUNT,PLT 1 10^3/uL (150-450)
[2024-05-15 13:54] LABS: BASOPHILS PERCENT AUTO 0.7 % (0.0-1.0); EOSINOPHILS PERCENT AUTO 8.9 % (1.0-3.0); LYMPHOCYTES PERCENT AUTO 41.1 % (20.5-50.1); MONOCYTES PERCENT AUTO 5.7 % (2-8); NEUTROPHILS PERCENT AUTO 43.6 % (42.2-75.2)
[2024-05-15 13:55] LABS: ATYPICAL LYMPHOCYTES FEW; EOSINOPHILS PERCENT MAN 4 % (1-3); HOWELL JOLLY BODIES 1+ SLIGHT; LYMPHOCYTES PERCENT MAN 46 % (20-50); MONOCYTES PERCENT MAN 3 % (2-8); NRBC MANUAL 1 /100WBC; SEG NEUTROPHILS PERCENT MAN 47 % (42-75)
[2024-05-15 13:56] LABS: PLATELET COUNT ESTIMATE MARKED DEC
== END 2024-05-15 16:00 ==
LOC: DL.ED 12:27
DX: D69.3 Immune thrombocytopenic purpura (principal); I10 Essential (primary) hypertension; Z88.8 Allergy status to other drugs, medicaments and biological substances; Z88.7 Allergy status to serum and vaccine; Z88.2 Allergy status to sulfonamides; Z79.899 Other long term (current) drug therapy
CPT/HCPCS: 36415; 80053; 85025; 85610; 86850; 86900; 86901; 87081; 87428-QW; 87430; 96374; 99284; 99285-25; J2919

== ENCOUNTER 2024-07-10 14:47 | Emergency (ER) | payer BC, MEDICARE ==
[2024-07-10] MEDS ORDERED: Sodium Chloride 0.9% 10 ML Syringe FLUSH PRN (14:55)
[2024-07-10] MEDS: methylPREDNISolone Sod Succ 1,000 MG in Sodium Chloride 0.9% 100 ML IV ONE (15:19)
== END 2024-07-10 16:43 ==
LOC: DL.ED 14:47
DX: D69.6 Thrombocytopenia, unspecified (principal); R23.3 Spontaneous ecchymoses; I10 Essential (primary) hypertension; Z88.2 Allergy status to sulfonamides; Z88.5 Allergy status to narcotic agent; Z79.899 Other long term (current) drug therapy
CPT/HCPCS: 96365; 99284; J2919

== ENCOUNTER 2024-07-16 19:17 | Emergency (ER) | payer BC, MEDICARE ==
[2024-07-16] MEDS ORDERED: Sodium Chloride 0.9% 10 ML Syringe FLUSH PRN (20:01)
[2024-07-16 21:39] LABS: HEMATOCRIT 41.6 % (37.0-47.0); HEMOGLOBIN 13.3 g/dL (12.0-16.0); MEAN CORPUSCULAR HEMOGLOBIN 27.9 pg (27.0-34.0); MEAN CORPUSCULAR VOLUME 87.4 fL (80-100); PLATELET COUNT,PLT 200 10^3/uL (150-450); RED BLOOD CELL COUNT 4.76 10^6/uL (4.2-5.4); WHITE BLOOD CELL COUNT,WBC 17.8 10^3/uL (5.0-10.0)
[2024-07-16 21:42] LABS: BASOPHILS PERCENT AUTO 0.1 % (0.0-1.0); EOSINOPHILS PERCENT AUTO 0.6 % (1.0-3.0); LYMPHOCYTES PERCENT AUTO 46.7 % (20.5-50.1); MONOCYTES PERCENT AUTO 8.7 % (2-8); NEUTROPHILS PERCENT AUTO 43.9 % (42.2-75.2)
[2024-07-16 21:58] LABS: ALBUMIN 2.9 g/dL (3.4-5.0); ANION GAP 11.9 mEq/L (7-13); BILIRUBIN TOTAL 0.5 mg/dL (0.2-1.0); CALCIUM 8.6 mg/dL (8.5-10.1); EST CRCL DRUG DOSING (CG) 50.9 mL/min; POTASSIUM,K 3.9 mmol/L (3.5-5.1); PROTEIN TOTAL,TP 7.6 g/dL (6.4-8.2)
[2024-07-16 22:03] LABS: A/G RATIO 0.62
[2024-07-16 22:23] LABS: LYMPHOCYTES PERCENT MAN 53 % (20-50); MONOCYTES PERCENT MAN 8 % (2-8); SEG NEUTROPHILS PERCENT MAN 39 % (42-75)
[2024-07-16] MEDS: LORazepam 0.5 MG Tab PO ONE (22:51)
[2024-07-16] MEDS: Sodium Chloride 0.9% 1,000 ML IV SCH (23:49)
== END 2024-07-17 00:10 ==
LOC: DL.ED 19:17
DX: I63.9 Cerebral infarction, unspecified (principal); I10 Essential (primary) hypertension; Z79.899 Other long term (current) drug therapy; Z88.5 Allergy status to narcotic agent; Z88.2 Allergy status to sulfonamides; Z88.8 Allergy status to other drugs, medicaments and biological substances; Z88.7 Allergy status to serum and vaccine
CPT/HCPCS: 36415; 70450; 72125; 80053; 85025; 99284; 99285; A9270; J7030

== ENCOUNTER 2024-08-13 03:57 | Emergency (ER) | payer BC, MEDICARE ==
[2024-08-13] MEDS: Iopamidol 612 MG/ML 100 ML Bottle IVPUSH ONE (04:17)
[2024-08-13 04:30] LABS: HEMATOCRIT 42.9 % (37.0-47.0); HEMOGLOBIN 14.4 g/dL (12.0-16.0); MEAN CORPUSCULAR HGB CONC 33.6 g/dL (33.0-35.0); MEAN CORPUSCULAR VOLUME 86.3 fL (80-100); PLATELET COUNT,PLT 327 10^3/uL (150-450); RED BLOOD CELL COUNT 4.97 10^6/uL (4.2-5.4)
[2024-08-13 04:33] LABS: BASOPHILS PERCENT AUTO 0.1 % (0.0-1.0); EOSINOPHILS PERCENT AUTO 1.4 % (1.0-3.0); LYMPHOCYTES PERCENT AUTO 33.5 % (20.5-50.1); MONOCYTES PERCENT AUTO 6.5 % (2-8); NEUTROPHILS PERCENT AUTO 58.5 % (42.2-75.2)
[2024-08-13] MEDS: Ondansetron 4 MG/2 ML SDV IVPUSH ONE (04:35)
[2024-08-13] MEDS: Sodium Chloride 0.9% 1,000 ML IV ONE (04:35)
[2024-08-13 04:37] LABS: ALBUMIN 2.9 g/dL (3.4-5.0); BILIRUBIN TOTAL 0.9 mg/dL (0.2-1.0); BUN/CREATININE RATIO 23.8 (No establ ref range); CALCIUM 9.3 mg/dL (8.5-10.1); CREATININE 1.01 mg/dL (0.55-1.02); EST CRCL DRUG DOSING (CG) 48.52 mL/min; POTASSIUM,K 3.9 mmol/L (3.5-5.1); PROTEIN TOTAL,TP 8.2 g/dL (6.4-8.2)
[2024-08-13 04:40] LABS: LACTIC ACID 1.4 mmol/L (0.4-2.0)
[2024-08-13 04:41] LABS: A/G RATIO 0.55; ANION GAP 10.9 mEq/L (7-13)
[2024-08-13 04:56] LABS: BAND PERCENT MAN 2 %; LYMPHOCYTES PERCENT MAN 36 % (20-50); SEG NEUTROPHILS PERCENT MAN 56 % (42-75)
[2024-08-13 04:57] LABS: EOSINOPHILS PERCENT MAN 1 % (1-3); MONOCYTES PERCENT MAN 5 % (2-8)
[2024-08-13 05:09] LABS: APPEARANCE,URINE SLIGHTLY CLOUDY (CLEAR); BILIRUBIN,URINE NEGATIVE (NEGATIVE); COLOR,URINE YELLOW (YELLOW); GLUCOSE,URINE 500 (NEGATIVE); KETONES,URINE NEGATIVE (NEGATIVE); LEUKOCYTE ESTERASE,URINE NEGATIVE (NEGATIVE); NITRITE,URINE NEGATIVE (NEGATIVE); OCCULT BLOOD,URINE TRACE-INTACT (NEGATIVE); PROTEIN,URINE NEGATIVE (NEGATIVE); UROBILINOGEN,URINE 0.2 mg/dL (0.2-1.0)
[2024-08-13 05:18] LABS: BACTERIA,URINE MODERATE /HPF (0-FEW/HPF); EPITHELIAL CELLS,URINE FEW /HPF (NOT SEEN); MUCUS,URINE FEW /LPF (NOT SEEN); RBC,URINE 0-5 /HPF (0-5); WBC,URINE 20-30 /HPF (0-5/HPF)
[2024-08-13] MEDS: Acetaminophen/HYDROcodone 325-10 MG Tab PO ONE (07:12)
[2024-08-13] MEDS: Amoxicillin/Clavulanate K 875-125 MG Tab PO ONE (07:12)
== END 2024-08-13 07:20 | disposition home or self-care (01) ==
LOC: DL.ED 03:57
DX: K57.32 Diverticulitis of large intestine without perforation or abscess without bleeding (principal); I10 Essential (primary) hypertension; Z88.2 Allergy status to sulfonamides; Z88.8 Allergy status to other drugs, medicaments and biological substances; Z88.7 Allergy status to serum and vaccine; Z79.899 Other long term (current) drug therapy
CPT/HCPCS: 36415; 74177; 80053; 81001; 83605; 83690; 85025; 96361; 96374; 99284; 99284-25; A9270-GY; J2405; J7030; Q9967

== ENCOUNTER 2024-10-23 20:44 | Emergency (ER) | payer BC, MEDICARE ==
[2024-10-23] MEDS: Iopamidol 755 Mg/ML 100 ML Bottle IVPUSH ONE (22:55)
[2024-10-23 23:12] LABS: BASOPHILS PERCENT AUTO 0.1 % (0.0-1.0); EOSINOPHILS PERCENT AUTO 0.0 % (1.0-3.0); LYMPHOCYTES PERCENT AUTO 33.1 % (20.5-50.1); MONOCYTES PERCENT AUTO 5.0 % (2-8); NEUTROPHILS PERCENT AUTO 61.8 % (42.2-75.2); PLATELET COUNT,PLT 36 10^3/uL (150-450); RED BLOOD CELL COUNT 4.69 10^6/uL (4.2-5.4); WHITE BLOOD CELL COUNT,WBC 7.0 10^3/uL (5.0-10.0)
[2024-10-23 23:37] LABS: A/G RATIO 0.7; ALANINE AMINOTRANSFERASE,ALT 34.0 U/L (14-59); ASPARTATE AMNIOTRANSFERASE,AST 18.0 U/L (15-37); BILIRUBIN TOTAL 0.4 mg/dL (0.2-1.0); BLOOD UREA NITROGEN,BUN 21.0 mg/dL (7-18); CARBON DIOXIDE,CO2 29.0 mmol/L (21-32); CHLORIDE,CL 102.0 mmol/L (98-107); CREATININE 0.81 mg/dL (0.55-1.02); EST CRCL DRUG DOSING (CG) 60.5 mL/min; GLUCOSE RANDOM 201.0 mg/dL (70-99); POTASSIUM,K 4.1 mmol/L (3.5-5.1); PROTEIN TOTAL,TP 8.5 g/dL (6.4-8.2); SODIUM,NA 139.0 mmol/L (136-145)
[2024-10-23 23:38] LABS: ESTIMATED GFR 78.0 mL/min (>=60)
[2024-10-23 23:51] LABS: APPEARANCE,URINE CLEAR (CLEAR); GLUCOSE,URINE >=1000 (NEGATIVE); OCCULT BLOOD,URINE TRACE-INTACT (NEGATIVE)
[2024-10-23 23:58] LABS: EPITHELIAL CELLS,URINE RARE /HPF (NOT SEEN)
== END 2024-10-24 01:14 | disposition home or self-care (01) ==
LOC: DL.ED 20:44
DX: E86.0 Dehydration (principal); D69.6 Thrombocytopenia, unspecified; R20.2 Paresthesia of skin; I10 Essential (primary) hypertension; Z88.8 Allergy status to other drugs, medicaments and biological substances; Z88.5 Allergy status to narcotic agent; Z88.2 Allergy status to sulfonamides; Z79.899 Other long term (current) drug therapy
CPT/HCPCS: 36415; 70450; 70496; 70498; 80053; 81001; 83735; 84484; 85025; 96360; 99284; 99284-25; J7030; Q9967